=== PATIENT | male | born 2000 | race Two or more races ===

== ENCOUNTER 2022-09-02 09:48 | Emergency (ER) | payer OTHER ==
[~2022-09-02] VITALS: Ht 190.5 cm; Wt 100.0 kg
[2022-09-02 11:57] VITALS: BP 164/106
[2022-09-02] MEDS ORDERED: IBUP600T27 PO (12:13)
[2022-09-02] MEDS ORDERED: ACET-1158 PO (12:13)
[2022-09-02] MEDS ORDERED: LORA-664 PO (12:13)
== END 2022-09-02 12:13 | disposition home or self-care (01) ==
LOC: ER 09:48
DX: U07.1 COVID-19 (principal)
CPT/HCPCS: 36415; 87070; 87426; 87804; 87880